=== PATIENT | female | born 1950 | race Caucasian/White ===

== ENCOUNTER 2023-01-27 05:50 | Day surgery (SDC) | payer MEDICARE, BC ==
[~2023-01-27] VITALS: Ht 165.1 cm; Wt 90.9 kg
[~2023-01-27 05:50] MED LIST: ATENOLOL100 MG PO; IRON325 M1 PO; LEVOTHYROXINE50 MCG PO; MULTI VITAMIN1 EACH PO; VITAMIN D350 MCG PO; WARFARIN SODIU2.5 MG PO; ZOCOR40 MG PO
--- NOTE | 2023-01-27 13:20 | NUR ---
PT CANCELLED PER ALTITUDE CHAMBER TECHNICIAN FOR NEW ONSET OF ABIB WITHOUT FURTHER CARDIAC WORKUP. IV REMOVED WITH CATH TIP INTACT AND PRESSURE APPLIED TO SITE. TO CONTACT DR. FUNEZ'S OFFICE TO RESCHEDULE AT A LATER DATE AFTER CARDIAC EVAL
== END 2023-01-27 18:00 | disposition home or self-care (01) ==
LOC: DS 05:50 → OPS 05:50 → DS 07:30 → OPS 18:00
PROVIDERS: ATTEND Colon & Rectal Surgery
DX: R19.5 Other fecal abnormalities (principal); Z53.09 Procedure and treatment not carried out because of other contraindication; I48.91 Unspecified atrial fibrillation; E66.9 Obesity, unspecified; I10 Essential (primary) hypertension; E03.9 Hypothyroidism, unspecified; K64.4 Residual hemorrhoidal skin tags
CPT/HCPCS: J2704; J7121